=== PATIENT | male | born 1980 | race American Indian/Alaskan Native ===

== ENCOUNTER 2018-05-15 08:38 | Emergency (ER) | payer OTHER ==
[2018-05-15 08:53] VITALS: BP 151/89
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
== END 2018-05-15 10:49 | disposition home or self-care (01) ==
LOC: ED 08:38
DX: G89.29 Other chronic pain (principal); M54.5 Low back pain; R03.0 Elevated blood-pressure reading, without diagnosis of hypertension
CPT/HCPCS: 99282